=== PATIENT | female | born 1945 | race Two or more races ===

== ENCOUNTER 2023-01-01 08:45 | Outpatient (CLI) | payer OTHER ==
[~2023-01-01] VITALS: Ht 147.3 cm; Wt 54.0 kg
== END 2023-01-01 08:55 | disposition home or self-care (01) ==
LOC: LAB 08:45 → EDSTATUS 01-05 07:00
PROVIDERS: ATTEND Obstetrics & Gynecology
DX: Z01.812 Encounter for preprocedural laboratory examination (principal); Z20.822 Contact with and (suspected) exposure to COVID-19
CPT/HCPCS: 86850; 86900; 86901; U0003

== ENCOUNTER 2023-06-08 06:08 | Inpatient (IN) | payer OTHER ==
[~2023-06-08] VITALS: Ht 147.3 cm; Wt 62.5 kg
[2023-06-08] MEDS ORDERED: ceFAZolin 1GM/50ML 100 ML IV ONE (06:15)
[2023-06-08] MEDS ORDERED: LIDOCAINE 1% HCL (LOCAL ANESTH.) INJ 20ML MDV ONE (07:00)
[2023-06-08] MEDS ORDERED: BUPIVACAINE W/ EPINEPH 0.5% INJ 50ML MDV IJ ONE ×2 (07:00→10:00)
[2023-06-08] MEDS ORDERED: METHYLENE BLUE 0.5% 5MG/ML 10ml AMP IV ONE (07:00)
[2023-06-08] MEDS ORDERED: DexAMETHasone SOD PHOS 10MG/1ML VIAL INJ ONE (07:24)
[2023-06-08] MEDS ORDERED: fentaNYL CITRATE 100 MCG/2 ML VL ONE (07:24)
[2023-06-08] MEDS ORDERED: LIDOCAINE 2% (LOCAL ANESTH.) PF 5ml SDV ONE (07:24)
[2023-06-08] MEDS ORDERED: MIDAZOLAM HCL 2MG/2ML 2ml VIAL (1mg/ml) ONE (07:24)
[2023-06-08] MEDS ORDERED: ROCURONIUM 10MG/ML 10ML VIAL IV ONE (07:24)
[2023-06-08] MEDS ORDERED: ePHEDrine SULFATE 50 MG/ML AMP ONE (07:24)
[2023-06-08] MEDS ORDERED: PROPOFOL 10 MG/ML 20 ML IV ONE (07:24)
[2023-06-08] MEDS ORDERED: ONDANSETRON HCL 4 MG/2 ML VIAL ONE (07:24)
[2023-06-08] MEDS ORDERED: HYDROmorphone HCL 2 MG/ML VL/or syr ONE (07:24)
[2023-06-08] MEDS ORDERED: GLYCOPYRROLATE 0.2 MG/ML 1ML VIAL ONE (07:24)
[2023-06-08] MEDS ORDERED: SUGAMMADEX 200mg/2ml Vial (100MG/ML) IV ONE (07:57)
[2023-06-08] MEDS ORDERED: ceFAZolin 1GM VL ONE (08:28)
[2023-06-08] MEDS ORDERED: CONJ ESTROGENS 0.625MG/GM VAG CRM 30GM PV ONE (10:46)
[2023-06-08 11:10] VITALS: PULSE 97; RESP 11; O2SAT 100
[2023-06-08] MEDS ORDERED: KETOROLAC TROMETH 30 MG/ML 1ML VIAL IV ONE (11:14)
[2023-06-08] MEDS ORDERED: NITROGLYCERIN 0.4 MG SL TAB SL PRN (11:15)
[2023-06-08] MEDS: SODIUM CHLORIDE 0.9% 1,000 ML IV SCH (11:15)
[2023-06-08] MEDS ORDERED: ceFAZolin 1GM/50ML 50 ML IV ONE ×2 (11:15→14:00)
[2023-06-08] MEDS ORDERED: HYDROmorphone HCL 2 MG/ML VL/or syr IV PRN ×3 (11:15→13:00)
[2023-06-08] MEDS ORDERED: MORPHINE SULFATE INJ 2 MG/ml SYRG IV PRN (11:15)
[2023-06-08] MEDS ORDERED: ONDANSETRON HCL 4 MG/2 ML VIAL IV PRN ×2 (11:15)
[2023-06-08 17:00] VITALS: BP 117/62; PULSE 77; RESP 18; TEMP 98.7; O2SAT 98
[2023-06-08] MEDS: ACETAMINOPHEN 325 MG TAB PO PRN (21:17)
[2023-06-08 22:00] VITALS: BP 111/47; PULSE 84; RESP 17; TEMP 97.6; O2SAT 96
[2023-06-09] MEDS: SODIUM CHLORIDE 0.9% 1,000 ML IV SCH ×2 (01:26→14:39)
[2023-06-09 05:00] VITALS: BP 111/65; PULSE 66; RESP 17; TEMP 97.8; O2SAT 95
[2023-06-09] MEDS: ACETAMINOPHEN 325 MG TAB PO PRN ×2 (08:44→17:40)
[2023-06-09 09:00] VITALS: BP 108/45; PULSE 71; RESP 19; TEMP 98.3; O2SAT 97
[2023-06-09 13:00] VITALS: BP 105/50; PULSE 68; RESP 18; TEMP 98.1; O2SAT 96
[2023-06-09 17:00] VITALS: BP 143/77; PULSE 69; RESP 16; TEMP 98.7; O2SAT 98
[2023-06-09 22:00] VITALS: BP 131/54; PULSE 71; RESP 16; TEMP 98; O2SAT 96
[2023-06-10] MEDS: SODIUM CHLORIDE 0.9% 1,000 ML IV SCH ×2 (00:45→05:11)
[2023-06-10 05:00] VITALS: BP 125/57; PULSE 72; RESP 16; TEMP 97.1; O2SAT 97
[2023-06-10 08:00] VITALS: BP 101/46; PULSE 72; RESP 15; TEMP 98.3; O2SAT 96
== END 2023-06-10 11:15 | disposition home or self-care (01) | DRG 743 ==
LOC: SUR 06:08 → LDRP 11:18 → WEST WING 14:07
PROVIDERS: ADMIT Hospitalist; ATTEND Hospitalist
PROC: 0TSD0ZZ Reposition Urethra, Open Approach (ICD-10-PCS; 2023-06-08)
PROC: 0UT20ZZ Resection of Bilateral Ovaries, Open Approach (ICD-10-PCS; 2023-06-08)
PROC: 0UT70ZZ Resection of Bilateral Fallopian Tubes, Open Approach (ICD-10-PCS; 2023-06-08)
PROC: 8E0W0CZ Robotic Assisted Procedure of Trunk Region, Open Approach (ICD-10-PCS; 2023-06-08)
PROC: 0JQC0ZZ Repair Pelvic Region Subcutaneous Tissue and Fascia, Open Approach (ICD-10-PCS; 2023-06-08)
PROC: 0UT90ZZ Resection of Uterus, Open Approach (ICD-10-PCS; principal; 2023-06-08 07:40)
DX: N81.4 Uterovaginal prolapse, unspecified (principal); N39.3 Stress incontinence (female) (male); Z88.5 Allergy status to narcotic agent; Z88.8 Allergy status to other drugs, medicaments and biological substances
CPT/HCPCS: 86850; 86900; 86901; 88302; C1771; G0378; J0690; J1100; J1885; J2001; J2250; J2405; J2704